=== PATIENT | female | born 1980 | race Native Hawaiian/Other Pacific Islander ===

== ENCOUNTER 2017-02-19 19:16 | Emergency (ER) | payer BC ==
[~2017-02-19] VITALS: Ht 160 cm; Wt 84.8 kg
[2017-02-19 19:49] VITALS: BP 130/78; TEMP 98.1
== END 2017-02-19 20:32 | disposition home or self-care (01) ==
LOC: ED 19:16
PROC: 3E1CX8Z Irrigation of Eye using Irrigating Substance (ICD-10-PCS; principal; 2017-02-19)
DX: S05.02XA Injury of conjunctiva and corneal abrasion without foreign body, left eye, initial encounter (principal); W22.8XXA Striking against or struck by other objects, initial encounter; Y92.098 Other place in other non-institutional residence as the place of occurrence of the external cause
CPT/HCPCS: 99282

== ENCOUNTER 2017-11-23 17:42 | Emergency (ER) | payer BC ==
[~2017-11-23] VITALS: Ht 160 cm; Wt 79.8 kg
[2017-11-23 17:48] VITALS: BP 128/73; TEMP 98.1
[2017-11-23 18:41] LABS: PLATELET COUNT 432 K/uL (152-353)
== END 2017-11-23 18:54 | disposition home or self-care (01) ==
LOC: ED 17:42
DX: L03.115 Cellulitis of right lower limb (principal); Z87.81 Personal history of (healed) traumatic fracture
CPT/HCPCS: 85027; 99282

== ENCOUNTER 2021-05-03 12:17 | Emergency (ER) | payer OTHER ==
[~2021-05-03] VITALS: Ht 160 cm; Wt 80.7 kg
[2021-05-03 12:26] VITALS: TEMP 98.3
[2021-05-03 13:20] LABS: PLATELET COUNT 478 K/uL (152-353)
[2021-05-03 13:27] LABS: POTASSIUM 4.2 mmol/L (3.6-5.2)
[2021-05-03 14:43] VITALS: BP 141/82
== END 2021-05-03 14:48 | disposition home or self-care (01) ==
LOC: ED 12:17
PROVIDERS: Emergency Medicine
DX: K56.690 Other partial intestinal obstruction (principal); K52.89 Other specified noninfective gastroenteritis and colitis
CPT/HCPCS: 80053; 81000; 81025; 82150; 83690; 85027; 96374; 96375; 99284; J2175; J2405; Q9963

== ENCOUNTER 2021-10-10 18:54 | Emergency (ER) | payer OTHER ==
[~2021-10-10] VITALS: Ht 160 cm; Wt 81.6 kg
[2021-10-10 21:49] VITALS: BP 137/86; TEMP 98.4
== END 2021-10-10 21:49 | disposition home or self-care (01) ==
LOC: ED 18:54
DX: Z20.822 Contact with and (suspected) exposure to COVID-19 (principal)
CPT/HCPCS: 87635; 99282; U0003